=== PATIENT | male | born 1970 | race Caucasian/White ===

== ENCOUNTER 2016-07-20 21:39 | Emergency (ER) | payer MEDICAID ==
[~2016-07-20] VITALS: Ht 182.9 cm; Wt 117.9 kg
[2016-07-20 22:04] VITALS: BP 131/88
[2016-07-20 22:48] LABS: Basophils # (auto) 0.1 uL; Basophils % (auto) 0.6 % (0.0-2.0); DEFINITIVE VIEW TRANSMISSION; Eosinophils # (auto) 0.1 uL; Eosinophils % (auto) 0.6 % (0.0-7.0); Hematocrit 55.9 % (41.0-53.0); Hemoglobin 18.4 g/dL (13.5-17.5); Lymphocytes # (auto) 3.9 uL; Lymphocytes % (auto) 31.4 % (10.0-50.0); Mean Corpuscular Hemoglobin 29.9 pg (28.0-32.0); Mean Corpuscular Hgb Conc. 32.8 g/dL (32.0-36.0); Mean Platelet Volume 7.3 fL (7.4-10.4); Monocytes # (auto) 0.8 uL; Monocytes % (auto) 6.8 % (0.0-12.0); Neutrophils # (auto) 7.5 uL; Neutrophils % (auto) 60.6 % (37.0-80.0); Platelet Count (auto) 232 10^3/uL (140-450); Red Cell Distribution Width 13.1 % (11.6-16.0); White Blood Cell 12.4 10^3/uL (4.4-10.8)
[2016-07-20 23:01] LABS: BUN/Creatinine Ratio 23.4; Calcium 9.6 mg/dL (8.5-10.1); Potassium 3.6 mmol/L (3.5-5.1)
[2016-07-20 23:04] LABS: Bilirubin, Total 3.2 mg/dL (0.2-1.0); Total Protein 9.3 g/dL (6.4-8.2)
== END 2016-07-21 01:49 | disposition left against medical advice (07) ==
LOC: ER 22:57
DX: R11.2 Nausea with vomiting, unspecified (principal); R10.9 Unspecified abdominal pain; Z53.21 Procedure and treatment not carried out due to patient leaving prior to being seen by health care provider
CPT/HCPCS: 36415; 74176; 80053; 85025